=== PATIENT | female | born 1940 | race Caucasian/White ===

== ENCOUNTER 2017-10-08 14:35 | Emergency (ER) | payer MEDICARE, OTHER ==
[~2017-10-08] VITALS: Ht 165.1 cm; Wt 68.5 kg
[~2017-10-08 14:35] MED LIST: ADV250/50 IH; ALB0.5 IH; ALB6.7R INH; ALBU8.5H12 IH; AMOX-559 PO; AMOX1TAB9 PO; ASPI81TA94 PO; ATOR10TA24 PO; ATOR40TA69 PO; AZIT500T47 PO; BENAZAPRIL; CHOL200074 PO; CHOL500025 PO; FAMO40TA8 PO; FERR-53 PO; FLUT1AER INH; IPRA15SP7 NS; LANS30CA70 PO; LOSA-32 PO; LOSA-57 PO; METH4TAB66 PO; MON10 PO; MULT-912 PO; PAR20 PO; PARO-46 PO; PRED-1 PO; PRED20TA6 PO; RANI-324 PO; UBID100C33 PO; UBID100C48 PO; VITA1CAP46 PO
--- NOTE | 2017-10-08 14:39 | ER Report ---
History and Physical Time Seen By MD: 14:39 HPI/ROS CHIEF COMPLAINT: Dyspnea HISTORY OF PRESENT ILLNESS: 77-year-old female with history of gastric fundoplication for hiatal hernia sinusitis finishing Augmentin and chronic cough following with pulmonology reports dyspnea one day after her last pulmonology appointment symptoms started on but then seemed worse today when she noted her sat was 76% on room air on her home monitor. She is not on oxygen. No chest pain no leg swelling. She does endorse low-grade fevers chills muscle aches and body aches but no definite exposure to flu. No abdominal pain or urinary symptoms. Denies other concerns or complaints today. REVIEW OF SYSTEMS: Constitutional: Malaise Eyes: No discharge. ENT: No sore throat. Cardiovascular: Otherwise normal Respiratory: No cough, no shortness of breath. Gastrointestinal: No abdominal pain, no vomiting. Genitourinary: No hematuria. Musculoskeletal: No back pain. Skin: No rashes. Neurological: No headache. Allergies: Coded Allergies: sulfamethoxazole (Verified Allergy, Severe, RASH, 10/08/17) DRY MOUTH trimethoprim (Verified Allergy, Severe, RASH, 10/08/17) DRY MOUTH latex (Verified Allergy, Intermediate, RASH, ITCHING, SWELLING, 10/08/17) Home Meds Active Scripts Ipratropium Jansen 0.06% Ns (IPRATROPIUM BROMIDE 0.06% NS) 15 Ml [place], 2 SPRAYS NS BID for 30 Days, #1 BOT Prov:ZEB FLORES JR, MD 09/20/17 Atorvastatin Calcium (ATORVASTATIN CALCIUM) 40 Mg Tablet, 1 TAB PO QDAY, #30 TAB Prov:JAELYN LINDSAY MD 09/18/17 Losartan/Hydrochlorothiazide (HYZAAR 50-12.5 TABLET) 1 Each Tablet, 1 TAB PO DAILY, #90 TAB 3 Refills Prov:JAELYN LINDSAY MD 09/18/17 Albuterol Sulfate (PROVENTIL HFA) 6.7 Gm Inh, 2 PUFF INH Q4-6H, #1 INH Prov:SULEIMAN EDMONDS NP 11/03/15 Albuterol Sul Hfa 90 Mcg 8 Gm (VENTOLIN HFA 90 MCG 8 GM) 8.5 Gm Hfa.aer.ad, 2 PUFF IH Q4-6H, #1 Prov:ASHLEY KAUR DO 11/05/14 Reported Medications Aspirin (ASPIRIN) 81 Mg Tab.chew, 1 TAB PO DAILY, TAB.CHEW 09/18/17 Cholecalciferol (Vitamin D3) (VITAMIN D3) 5,000 Unit Tablet, 1 TAB PO DAILY 09/18/17 Ubidecarenone (COQ-10) 100 Mg Capsule, 100 MG PO DAILY, CAPSULE 04/03/15 Multivit With Calcium,Iron,Min (MULTIPLE VITAMINS FOR WOMEN) 1 Each Tablet, 1 EACH PO DAILY 04/03/15 Montelukast Sodium (Singulair) 10 Mg Tab, 10 MG PO QDAY 05/31/10 Discontinued Reported Medications Fluticasone/Vilanterol 100/25 Mcg/Inh (BREO ELLIPTA 100/25 MCG) 1 Each Aer.pow.ba, 1 INH INH QDAY, INH 09/18/17 Discontinued Scripts Amoxicillin/Pot Clav 875-125 Mg Tab (AUGMENTIN 875-125 TABLET) 1 Each Tablet, 1 TAB PO Q12H for 14 Days, #28 TAB Prov:ZEB FLORES JR, MD 09/20/17 Hx Smoking: Yes (SMOKED 4 TO 5 YEARS 1/2 PPD) Smoking Status: Former Smoker Exposure to Second Hand Smoke?: No Hx Substance Use Disorder: No Hx Alcohol Use: No Constitutional Vital Sign - Last 24 Hours 10/08/17 10/08/17 10/08/17 10/08/17 14:41 14:43 14:50 14:51 Temp 98.1 Pulse 83 85 Resp 20 25 B/P (MAP) 134/77 (96) Pulse Ox 84 91 O2 Delivery Room Air O2 Flow Rate 2.0 10/08/17 10/08/17 10/08/17 10/08/17 15:00 15:05 15:10 15:10 Pulse 80 71 Resp 19 13 B/P (MAP) 119/61 (80) Pulse Ox 91 O2 Delivery Nasal Cannula O2 Flow Rate 2.0 10/08/17 10/08/17 10/08/17 10/08/17 15:17 16:25 16:25 16:31 Pulse 72 71 73 Resp 16 10 15 Pulse Ox 90 O2 Delivery Nasal Cannula O2 Flow Rate 2.0 Physical Exam General Appearance: The patient is alert, has no immediate need for airway protection and no signs of toxicity. Appears mildly short of breath Eyes: Pupils equal and round no pallor or injection. ENT, Mouth: Mucous membranes are moist. Respiratory: There are no retractions, lungs are clear to auscultation. Moderate to poor air movement bilaterally Cardiovascular: Regular rate and rhythm. No murmurs gallops or rubs Gastrointestinal: Abdomen is soft and non tender, no masses, bowel sounds normal. Neurological: Normal exam Skin: Warm and dry, no rashes. Musculoskeletal: Neck is supple non tender. Extremities are nontender, nonswollen and have full range of motion. No peripheral edema DIFFERENTIAL DIAGNOSIS: After history and physical exam differential diagnosis was considered for viral syndrome, pneumonia, and just heart failure, doubt acute coronary syndrome or VT. Medical Decision Making Data Points Result Diagram: 10/08/17 1502 10/08/17 1502 Laboratory Hematology Test 10/08/17 15:02 Red Blood Count 4.96 M/uL (4.17-5.56) Mean Corpuscular Volume 89.8 fL (80.0-96.0) Mean Corpuscular Hemoglobin 30.9 pg (26.0-33.0) Mean Corpuscular Hemoglobin Concent 34.4 g/dL (32.0-36.0) Red Cell Distribution Width 13.4 % (11.5-14.5) Mean Platelet Volume 8.9 fL (7.2-11.1) Neutrophils (%) (Auto) 59.4 % (39.4-72.5) Lymphocytes (%) (Auto) 26.1 % (17.6-49.6) Monocytes (%) (Auto) 13.6 % (4.1-12.4) Eosinophils (%) (Auto) 0.3 % (0.4-6.7) Basophils (%) (Auto) 0.6 % (0.3-1.4) Nucleated RBC Relative Count (auto) 0.1 /100WBC Neutrophils # (Auto) 2.9 K/uL (2.0-7.4) Lymphocytes # (Auto) 1.3 K/uL (1.3-3.6) Monocytes # (Auto) 0.7 K/uL (0.3-1.0) Eosinophils # (Auto) 0.0 K/uL (0.0-0.5) Basophils # (Auto) 0.0 K/uL (0.0-0.1) Nucleated RBC Absolute Count (auto) 0.00 K/uL D-Dimer Quantitative (PE/DVT) 0.43 ug/ml (0-0.50) Sodium Level 138 mmol/L (137-145) Potassium Level 3.1 mmol/L (3.5-5.0) Chloride Level 96 mmol/L (98-107) Carbon Dioxide Level 26 mmol/L (22-31) Blood Urea Nitrogen 20 mg/dl (7-18) Creatinine 0.90 mg/dl (0.52-1.04) Glomerular Filtration Rate Calc > 60.0 Random Glucose 121 mg/dl (75-110) Calcium Level 8.9 mg/dl (8.4-10.2) Total Bilirubin 0.8 mg/dl (0.2-1.3) Aspartate Amino Transf (AST/SGOT) 32 U/L (0-35) Alanine Aminotransferase (ALT/SGPT) 45 U/L (0-56) Alkaline Phosphatase 92 U/L (0-126) Troponin I < 0.012 ng/ml B-Type Natriuretic Peptide 95 pg/ml (0-100) Total Protein 7.1 gm/dl (6.3-8.2) Albumin 3.8 g/dl (3.5-5.0) Influenza Virus Type A (PCR) Negative (NEGATIVE) Influenza Virus Type B (PCR) Negative (NEGATIVE) Respiratory Syncytial Virus (PCR) Negative (NEGATIVE) Group A Streptococcus Screen Negative (NEGATIVE) Chemistry Test 10/08/17 15:02 White Blood Count 4.8 k/uL (4.5-11.0) Red Blood Count 4.96 M/uL (4.17-5.56) Hemoglobin 15.3 g/dL (12.0-16.0) Hematocrit 44.5 % (34.0-47.0) Mean Corpuscular Volume 89.8 fL (80.0-96.0) Mean Corpuscular Hemoglobin 30.9 pg (26.0-33.0) Mean Corpuscular Hemoglobin Concent 34.4 g/dL (32.0-36.0) Red Cell Distribution Width 13.4 % (11.5-14.5) Platelet Count 158 K/uL (150-450) Mean Platelet Volume 8.9 fL (7.2-11.1) Neutrophils (%) (Auto) 59.4 % (39.4-72.5) Lymphocytes (%) (Auto) 26.1 % (17.6-49.6) Monocytes (%) (Auto) 13.6 % (4.1-12.4) Eosinophils (%) (Auto) 0.3 % (0.4-6.7) Basophils (%) (Auto) 0.6 % (0.3-1.4) Nucleated RBC Relative Count (auto) 0.1 /100WBC Neutrophils # (Auto) 2.9 K/uL (2.0-7.4) Lymphocytes # (Auto) 1.3 K/uL (1.3-3.6) Monocytes # (Auto) 0.7 K/uL (0.3-1.0) Eosinophils # (Auto) 0.0 K/uL (0.0-0.5) Basophils # (Auto) 0.0 K/uL (0.0-0.1) Nucleated RBC Absolute Count (auto) 0.00 K/uL D-Dimer Quantitative (PE/DVT) 0.43 ug/ml (0-0.50) Glomerular Filtration Rate Calc > 60.0 Calcium Level 8.9 mg/dl (8.4-10.2) Total Bilirubin 0.8 mg/dl (0.2-1.3) Aspartate Amino Transf (AST/SGOT) 32 U/L (0-35) Alanine Aminotransferase (ALT/SGPT) 45 U/L (0-56) Alkaline Phosphatase 92 U/L (0-126) Troponin I < 0.012 ng/ml B-Type Natriuretic Peptide 95 pg/ml (0-100) Total Protein 7.1 gm/dl (6.3-8.2) Albumin 3.8 g/dl (3.5-5.0) Influenza Virus Type A (PCR) Negative (NEGATIVE) Influenza Virus Type B (PCR) Negative (NEGATIVE) Respiratory Syncytial Virus (PCR) Negative (NEGATIVE) Group A Streptococcus Screen Negative (NEGATIVE) Coagulation Test 10/08/17 15:02 D-Dimer Quantitative (PE/DVT) 0.43 ug/ml EKG/Imaging EKG Interpretation An EKG was performed at 1453 and read by wa normal sinus rhythm ventricular rate of 80 normal WI QRS and QTc intervals no ST or T-wave changes to suggest ischemia or infarction overall impression normal EKG. ED Course/Re-evaluation ED Course Plan of care discussed and agreed upon prior to hers placed 10/08/2017 4:32:13 pm a consult was placed to Dr. Tigist Alves who agrees with plan for discharge on oxygen as needed and impaired influenza treatment for influenza-like illness perhaps a strain not captured by our influenza A and B screening assay. Decision to Disposition Date: Oct 08, 2017 Decision to Disposition Time: 16:52 Depart Departure Latest Vital Signs Vital Signs Date Time Temp Pulse Resp B/P (MAP) Pulse Ox O2 Delivery O2 Flow Rate FiO2 10/08/17 16:31 73 15 10/08/17 16:25 90 Nasal Cannula 2.0 10/08/17 15:00 119/61 (80) 10/08/17 14:41 98.1 Impression: Primary Impression: Influenza-like illness Condition: Improved Disposition: HOME OR SELF-CARE Referrals: VANESSA JACKSON MD (PCP) New Scripts Oseltamivir Phosphate (TAMIFLU) 75 Mg Cap 75 MG PO BID for 5 Days, #10 CAP 0 Refills Prov: NGOZI SCHAEFER MD 10/08/17 Departure Forms: ER Transition Record, Home Oxygen, Nebulizer RX, Durable Medical Equipment-Oxygen: Oxygen Concentrator Reason for Use/Diagnosis: viral URI, hypoxia Start Date of the Order: Oct 08, 2017 Dosage or Concentration (if applicable) - LPM: 3 Route of Administration (if applicable): Nasal Cannula Frequency of Use: Continuous Duration Home O2 Required: 7 Duration Units: Days Room Air Oxygen Saturation: 84 ER Prescribing Physician's Name: Other NPI Numbers for Local ER MDs: Other Medications Reconciliation, Patient Portal Information Patient Instructions: Influenza (ED) NGOZI SCHAEFER MD Oct 08, 2017 14:39
[2017-10-08] MEDS ORDERED: METHYLPREDNIS SUC IV ONE (15:00)
[2017-10-08] MEDS ORDERED: ALBUTEROL 2.5 MG/0.5ML ER ONLY NEB ONE (15:00)
[2017-10-08] MEDS ORDERED: NS 0.9% IV ONE (15:00)
[2017-10-08] MEDS ORDERED: IPRATROPIUM 0.5MG/2.5ML NEB NEB ONE (15:00)
[2017-10-08 15:33] LABS: PLATELET COUNT, AUTOMATED 158 K/uL (150-450)
--- NOTE | 2017-10-08 15:38 | RADIOLOGY IMAGING REPORT ---
FACILITY: [facility] PATIENT NAME: Makayla Cuellar : 1940 MR: [id number] V: [id number] EXAM DATE: ORDERING PHYSICIAN: NGOZI SCHAEFER TECHNOLOGIST: Location: [facility] Patient: Makayla Cuellar : 1940 Visit/Account:[id number] Date of Sevice: 10/08/2017 EXAMINATION: Portable chest radiograph single view at 1519 hours HISTORY: Wheezing, dyspnea, evaluate for edema. COMPARISON: 11/03/2015. FINDINGS: A single portable AP view of the chest is obtained. Lines/tubes: None. Lungs/pleura: No focal consolidation or pleural effusion. Heart: Negative. Mediastinum: Atherosclerotic calcifications of the aorta. The large hiatal hernia is no longer visua lized. Bony structures/body wall: Negative. IMPRESSION: No radiographic evidence of acute cardiopulmonary disease. Report Dictated By: Kellee Alarcon MD at 10/08/2017 3:33 PM Report E-Signed By: Kellee Alarcon MD at 10/08/2017 3:34 PM WSN:[id number]
[2017-10-08] MEDS ORDERED: ALBUTEROL/IPRATROPIUM 3 ML NEB ONE (16:28)
[2017-10-08] MEDS ORDERED: OSE75 PO (16:52)
--- NOTE | 2017-10-08 17:09 | RADIOLOGY IMAGING REPORT ---
[place] [facility] [place] NAME: Makayla Cuellar : 1940 MR: [id number] V: [id number] EXAM DATE: ORDERING PHYSICIAN: NGOZI SCHAEFER TECHNOLOGIST: Location: [facility] Patient: Makayla Cuellar : 1940 Visit/Account:[id number] Date of Sevice: 10/08/2017 Examination: 2 view chest radiograph at 1644 hours. Comparison: Same day and earlier. History: wheezing, dyspnea; for edema Findings: No consolidation, nodule, or evidence of acute peribronchial inflammation. No pneumothorax, edema, or effusion. Cardiac and hilar contour size is within normal limits and unchanged. Osseous st ructures are intact. IMPRESSION: No evidence of acute cardiopulmonary disease. Report Dictated By: Armand Shaw MD at 10/08/2017 5:01 PM Report E-Signed By: Armand Shaw MD at 10/08/2017 5:03 PM WSN:[id number]
[2017-10-08 17:30] VITALS: BP 134/67
--- NOTE | 2017-10-09 09:33 | EKG ---
FACILITY: [facility] [place] PATIENT NAME: DESHAWN DOLAN : [id number] MR: [id number] V: [id number] EXAM DATE: ORDERING PHYSICIAN: NGOZI SCHAEFER TECHNOLOGIST: BRITTANY Degroot Reason : SOB Blood Pressure : / mmHG Vent. Rate : 080 BPM Atrial Rate : 080 BPM P-R Int : 128 ms QRS Dur : 108 ms QT Int : 388 ms P-R-T Axes : 052 070 061 degrees QTc Int : 447 ms Normal sinus rhythm Normal ECG When compared with ECG of 03-NOV-2014 07:43, No significant change was found Confirmed by JEFF CHAPIN ([id number]) on 10/09/2017 11:53:40 AM Referred By: OLIVE Confirmed By:JEFF CHAPIN
[2017-10-09] MEDS ORDERED: DOXY-228 PO (13:37)
[2017-10-09] MEDS ORDERED: METH4TAB66 PO (13:37)
[2017-10-09] MEDS ORDERED: DOXY150T15 PO (15:02)
== END 2017-10-08 17:49 | disposition home or self-care (01) ==
LOC: ER 14:43
DX: J11.1 Influenza due to unidentified influenza virus with other respiratory manifestations (principal)
CPT/HCPCS: 71045; 71046; 83880; 84484; 85025; 85379; 87081; 87502; 87798; 87880; 93005; 94640; 96365; 99284; J2930; J7050; J7611; J7620; J7644; 82040; 82247; 82310; 82374; 82435; 82565; 82947; 84075; 84132; 84155; 84295; 84450; 84460; 84520

== ENCOUNTER → 2017-10-19 | Outpatient (CLI) | payer MEDICARE, OTHER ==
[~2017-10-19] MED LIST changes: +DOXY-228 PO; +DOXY150T15 PO; +OSE75 PO
== END ==
LOC: LAB 13:58
PROVIDERS: ATTEND Emergency Medicine
DX: M81.0 Age-related osteoporosis without current pathological fracture (principal); E87.6 Hypokalemia; E78.6 Lipoprotein deficiency
CPT/HCPCS: 36415; 82310; 82374; 82435; 82565; 82947; 84132; 84295; 84520

== ENCOUNTER → 2017-10-30 | Outpatient (CLI) | payer MEDICARE, OTHER ==
[~2017-10-30] MED LIST changes: +LIDO700A19 TP
--- NOTE | 2017-10-30 16:31 | RADIOLOGY IMAGING REPORT ---
FACILITY: [facility] PATIENT NAME: Makayla Cuellar : 1940 MR: [id number] V: [id number] EXAM DATE: ORDERING PHYSICIAN: CAM BANSAL TECHNOLOGIST: Location: [facility] [place] Patient: Makayla Cuellar : 1940 Visit/Account:[id number] Date of Sevice: 10/30/2017 CHEST W/O CONTRAST History: Pulmonary emphysema, cough, broken rib TECHNIQUE: Contiguous axial images were performed through the chest to the level of the adrenal gla nds. No IV contrast was administered. Coronal and sagittal reformatting was also performed. Dose Lowe ring Technique One of the following dose optimization techniques was utilized in the performance of this exam: Autom ated exposure control; adjustment of the mA and/or kV according to the patient's size; or use of an i terative reconstruction technique. Specific details can be referenced in the facility's radiology C T exam operational policy. COMPARISON STUDIES: CTA chest March 28, 2014. Lungs / Pleura: The posterior medial right lower lobe there is an ovoid nodular region measuring 10 x 3.4 mm best seen on image 51 series 3 which has remained stable since 2013 and is of doubtful sign ificance Mediastinum/nodes: There are small stable mediastinal lymph nodes Heart and vessels: At least moderate coronary artery calcifications. Also noted is mitral annular c alcification Musculoskeletal / Body wall: negative. Upper abdomen: There is been a prior gastric hernia repair. There is cholelithiasis although no de monstration of biliary ductal dilatation. There is diverticulosis of the colon IMPRESSION: At least moderate coronary artery vascular calcifications Postsurgical changes from a prior gastric hernia repair Cholelithiasis although no demonstration of biliary ductal dilatation Colonic diverticulosis Report Dictated By: Rachel Chase MD at 10/30/2017 4:13 PM Report E-Signed By: Rachel Chase MD at 10/30/2017 4:28 PM WSN:[email or web address]
== END ==
LOC: CT 04:01
PROVIDERS: ATTEND Internal Medicine Pulmonary Disease
DX: I25.10 Atherosclerotic heart disease of native coronary artery without angina pectoris (principal); K80.20 Calculus of gallbladder without cholecystitis without obstruction; Z98.890 Other specified postprocedural states; K57.92 Diverticulitis of intestine, part unspecified, without perforation or abscess without bleeding
CPT/HCPCS: 71250

== ENCOUNTER → 2018-02-16 | Outpatient (CLI) | payer MEDICARE, OTHER ==
[~2018-02-16] MED LIST changes: +DOXY-179 PO; +FLUT16SP19; +PARO10TA80 PO; +PNEU0.5D3 IM; -RANI-324 PO; +RANI-366 PO
--- NOTE | 2018-02-16 15:08 | RADIOLOGY IMAGING REPORT ---
FACILITY: [facility] PATIENT NAME: DESHAWN DOLAN : [id number] MR: [id number] V: [id number] EXAM DATE: ORDERING PHYSICIAN: JAELYN LINDSAY TECHNOLOGIST: Madhuri Giles PROCEDURE:BILATERAL DIGITAL SCREENING MAMMOGRAM WITH CAD ASSISTED INTERPRETATION & 3D TOMOSYNTHESIS COMPARISON:Prior mammograms 11/07/16, 01/08/14, 03/13/12, 03/01/12. INDICATIONS:SCREENING FINDINGS: Moderately heterogeneous fibroglandular tissue is seen throughout the breasts. The parenchymal pattern has remained stable allowing for difference in mammographic technique & patient positioning. There is no evidence of malignant appearing mass, malignant appearing calcifications or other secondary sign of malignancy in either breast. DIAGNOSTIC CATEGORY 1--NEGATIVE. RECOMMENDATIONS: ROUTINE MAMMOGRAM AND CLINICAL EVALUATION. IMPRESSION: BIRADS 1: Negative. No significant abnormality is seen. Dictated by: Rachel Chase M.D. on 02/16/2018 at 11:25 Transcribed by: THELMA on 02/16/2018 at 11:32 Approved by: Rachel Chase M.D. on 02/16/2018 at 15:07 [facility]
== END ==
LOC: MAMO 02:24
PROVIDERS: ATTEND Emergency Medicine
DX: Z12.31 Encounter for screening mammogram for malignant neoplasm of breast (principal)
CPT/HCPCS: 77063; 77067

== ENCOUNTER → 2018-04-10 | Outpatient (CLI) | payer MEDICARE, OTHER ==
--- NOTE | 2018-04-10 15:52 | RADIOLOGY IMAGING REPORT ---
FACILITY: [facility] PATIENT NAME: Makayla Cuellar : 1940 MR: [id number] V: [id number] EXAM DATE: ORDERING PHYSICIAN: ZEB FLORES TECHNOLOGIST: [place] [facility] [place] Patient: Makayla Cuellar : 1940 Visit/Account:[id number] Date of Sevice: 04/10/2018 EXAMINATION: CT sinus without IV contrast HISTORY: Chronic sinusitis. COMPARISON: CT sinus from 08/18/2017. TECHNIQUE: Contiguous axial images were obtained through the paranasal sinuses without intravenous c ontrast administration. Coronal and sagittal reformatted images were obtained from the axial source d jacki. One of the following dose optimization techniques was utilized in the performance of this exam: Autom ated exposure control; adjustment of the mA and/or kV according to the patient's size; or use of an i terative reconstruction technique. Specific details can be referenced in the facility's radiology C T exam operational policy. FINDINGS: Maxillary sinuses: Resection of the left maxillary medial sinus wall and antrostomy on the right, wit h bilateral uncinectomies. Moderate concentric mucosal thickening in the right maxillary sinus and mi ld mucosal thickening in the left superior maxillary sinus, similar to prior exam. Frontal sinuses: Moderate mucosal thickening in the bilateral frontal sinuses increased from previou s exam. Ethmoid air cells: Partial bilateral ethmoidectomies. Mucoperiosteal thickening in the bilateral ethm oid region is slightly worse. Sphenoid sinuses: The left sphenoid sinus is larger than the right which is a normal variant. The int ersinus septum inserts on the medial wall of the right carotid canal. Mild mucosal thickening of both sphenoid sinuses. The right anterior clinoid process is aerated by the sphenoid sinus. Ostiomeatal units: Postoperative changes as above. Nasal septum/nasal cavity: Previous nasal septoplasty and partial bilateral middle turbinectomies. Th ere is 1.2 cm polypoid soft tissue in the right nasal cavity posteriorly. Orbits: Negative. Visualized intracranial contents/soft tissues: Atherosclerotic calcifications of the carotid siphons. Visualized intracranial contents are otherwise normal. TMJs: Joint space narrowing, bony spurring and sclerosis, mild on the left and severe on the right. IMPRESSION: 1. Bilateral maxillary antrostomies, partial bilateral ethmoidectomies, previous septoplasty, and par tial bilateral middle turbinectomies, similar to prior exam. 2. Extensive chronic inflammation throughout the paranasal sinuses is slightly worse, particularly in the bilateral frontal sinuses. 3. Possible 1.2 cm right nasal polyp posteriorly. 4. 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 Report Dictated By: Kellee Alarcon MD at 04/10/2018 3:42 PM Report E-Signed By: Kellee Alarcon MD at 04/10/2018 3:47 PM WSN:[email or web address]
== END ==
LOC: CT 07:07
PROVIDERS: ATTEND Otolaryngology
DX: J32.8 Other chronic sinusitis (principal)
CPT/HCPCS: 70486

== ENCOUNTER → 2018-05-15 | Outpatient (CLI) | payer MEDICARE, OTHER ==
[~2018-05-15] MED LIST changes: +POTA-23 PO
--- NOTE | 2018-05-15 12:09 | RADIOLOGY IMAGING REPORT ---
FACILITY: [facility] - [place] PATIENT NAME: Makayla Cuellar : 1940 MR: [id number] V: [id number] EXAM DATE: ORDERING PHYSICIAN: ANJEL WHITNEY TECHNOLOGIST: Location: [facility] [place] Patient: Makayla Cuellar : 1940 Visit/Account:[id number] Date of Sevice: 05/15/2018 Exam type: CHEST PA AND LAT History: Malaise, weakness, dizziness Comparison: October 08, 2017. And CTa of the chest October 26, 2013 Findings: Ill-defined increased density projecting over the right heart border on the PA view is likely related to patient's known large hiatal hernia which is better depicted on a CTA of the chest from October 26, 2013. Small amount linear scarring in the left lower lobe. No evidence of pleural effusions or over t pulmonary edema. Cardiac silhouette is mildly enlarged but unchanged. IMPRESSION: 1. Small amount linear scarring in the left lower lobe Ill-defined area of increased density projecting over the right heart border is likely related to pat ient's known large hiatal hernia which was better depicted on a prior CTA of the chest as described a catrachito Report Dictated By: Rachel Chase MD at 05/15/2018 12:02 PM Report E-Signed By: Rachel Chase MD at 05/15/2018 12:06 PM WSN:[email or web address]
--- NOTE | 2018-05-15 12:49 | EKG ---
FACILITY: [facility] - [place] PATIENT NAME: DESHAWN DOLAN : [id number] MR: [id number] V: [id number] EXAM DATE: ORDERING PHYSICIAN: CHELO TECHNOLOGIST: BRAIN STAPLES Test Reason : DIZZINESS Blood Pressure : / mmHG Vent. Rate : 062 BPM Atrial Rate : 062 BPM P-R Int : 148 ms QRS Dur : 098 ms QT Int : 430 ms P-R-T Axes : 049 056 031 degrees QTc Int : 436 ms Sinus rhythm with occasional premature ventricular complexes Otherwise normal ECG No previous ECGs available Confirmed by Axel Corbett ([id number]) on 05/15/2018 2:05:15 PM Referred By: Confirmed By:Axel Hector
== END ==
LOC: LAB 11:09
PROVIDERS: ATTEND Nurse Practitioner Primary Care
DX: I49.3 Ventricular premature depolarization (principal); K44.9 Diaphragmatic hernia without obstruction or gangrene; R53.81 Other malaise
CPT/HCPCS: 36415; 71046; 81001; 82040; 82247; 82310; 82374; 82435; 82565; 82947; 83036; 84075; 84132; 84155; 84295; 84450; 84460; 84484; 84520

== ENCOUNTER → 2018-05-31 | Outpatient (CLI) | payer MEDICARE, OTHER ==
[~2018-05-31] MED LIST changes: +DOXY-229 PO
[2018-05-31 15:39] LABS: PLATELET COUNT, AUTOMATED 206 K/uL (150-450)
== END ==
LOC: LAB 15:03
PROVIDERS: ATTEND Emergency Medicine
DX: E55.9 Vitamin D deficiency, unspecified (principal); I10 Essential (primary) hypertension
CPT/HCPCS: 36415; 82306; 82310; 82374; 82435; 82565; 82947; 84132; 84295; 84520; 85025

== ENCOUNTER 2018-06-04 00:22 | Inpatient (IN) | payer MEDICARE, OTHER ==
[2018-06-04] VITALS (16 sets, daily range): BP systolic 99–149; BP diastolic 64–90
[~2018-06-04] VITALS: Ht 165.1 cm; Wt 69.4 kg
[2018-06-04] MEDS ORDERED: FAMOTIDINE 20 MG TAB PO ONE (06:30)
[2018-06-04] MEDS ORDERED: NORMOSOL R SOLN(*) 1000 ML BAG 1,000 ML IV PRN (06:30)
[2018-06-04] MEDS ORDERED: LIDOCAINE/SOD BICARB 8.4% SYR ID ONE (06:30)
[2018-06-04] MEDS ORDERED: MIDAZOLAM 2 MG/2 ML VIAL IVP PRN (06:30)
[2018-06-04] MEDS ORDERED: ceFAZolin(*) 2GM/D5W 50ML 50 ML IVPB ONE (09:05)
[2018-06-04] MEDS ORDERED: NS(*) 0.9% 250 ML BAG 250 ML ONE ×2 (09:28→17:41)
[2018-06-04] MEDS ORDERED: OXYMETAZOLINE SPRAY 15 ML BTL ONE (09:28)
[2018-06-04] MEDS ORDERED: LIDO/EPI 1% MDV 1:100,000 20ML INFIL ONE ×2 (09:28→10:13)
[2018-06-04] MEDS ORDERED: BACITRACIN OINT 15 GM TUBE TP ONE (09:28)
[2018-06-04] MEDS ORDERED: MUPIROCIN 2% OINT 22 GM TUBE TP ONE (09:29)
[2018-06-04] MEDS ORDERED: DEXAMETHASONE SOD PHOS 10MG/ML ONE (09:45)
[2018-06-04] MEDS ORDERED: GELATIN SPONGE 12-7MM ONE (10:27)
[2018-06-04] MEDS ORDERED: GELATIN SPONGE SZ 100 ONE (10:27)
[2018-06-04] MEDS ORDERED: LR(*) 1000 ML BAG 1,000 ML IV PRN (11:04)
--- NOTE | 2018-06-04 11:04 | Post Operative Note ---
Operative Note - ENT Operative Day Date: Jun 04, 2018 Physicians Surgeon: Alcides Anesthesia: LMA Diagnosis Pre-Op Diagnosis: chronic sinusitis Post-Op Diagnosis: 1. chronic sinusitis 2. CSF leak Procedure Procedure(s): 1. endoscopic sinus surgery 2. repair right CSF leak Specimen Removed:(Maybe N/A): none Complications: CSF leak Fluids Fluids: see anesthesia note Estimated Blood Loss: 100 ml ZEB FLORES JR, MD Jun 04, 2018 11:04
[2018-06-04] MEDS ORDERED: ONDANSETRON 4 MG ODT TABDP SL PRN (11:05)
[2018-06-04] MEDS ORDERED: APAP/HYDROCODONE 325/5 TAB PO PRN (11:05)
[2018-06-04] MEDS ORDERED: MORPHINE 2 MG/ML SYR IVP PRN (11:05)
[2018-06-04] MEDS: ALBUTEROL 8 GM INHALER INH SCH (11:05)
[2018-06-04] MEDS ORDERED: ALBUTEROL SULFATE INH SCH (11:05)
[2018-06-04] MEDS ORDERED: fentaNYL CITR 100 MCG/2 ML AMP ONE (11:17)
--- NOTE | 2018-06-04 13:34 | Hospitalist Consultation ---
History of Present Illness Requesting Physician Dr. Flores Reason for Consult Medical Management, Dural leak Chief Complaint s/p sinus surgery History of Present Illness She was admitted s/p sinus surgery. She did have dural leak sustained during surgery. She has c/o headache now. History Problems: (1) Hypertension Status: Chronic (2) Asthma Status: Chronic (3) Hyperlipidemia Status: Chronic (4) Vitamin D deficiency Status: Chronic Home Meds Active Scripts Paroxetine Hcl (PAROXETINE HCL) 10 Mg Tablet, 10 MG PO QDAY, #90 TAB 3 Refills Prov:JAELYN LINDSAY MD 01/18/18 Atorvastatin Calcium (ATORVASTATIN CALCIUM) 40 Mg Tablet, 1 TAB PO QDAY, #90 TAB 4 Refills Prov:JAELYN LINDSAY MD 01/18/18 Fluticasone Prop 50 Mcg Ns (FLONASE 50 MCG NS) 16 Gm [place].susp, 2 SPRAYS NA QDAY for 30 Days, #1 BOT 11 Refills Prov:ZEB FLORES JR, MD 01/08/18 Losartan/Hydrochlorothiazide (HYZAAR 50-12.5 TABLET) 1 Each Tablet, 1 TAB PO DAILY, #90 TAB 3 Refills Prov:JAELYN LINDSAY MD 09/18/17 Albuterol Sulfate (PROVENTIL HFA) 6.7 Gm Inh, 2 PUFF INH Q4-6H, #1 INH Prov:SULEIMAN EDMONDS NP 11/03/15 Albuterol Sul Hfa 90 Mcg 8 Gm (VENTOLIN HFA 90 MCG 8 GM) 8.5 Gm Hfa.aer.ad, 2 PUFF IH Q4-6H, #1 Prov:ASHLEY KAUR DO 11/05/14 Reported Medications Fluticasone/Vilanterol 100/25 Mcg/Inh (BREO ELLIPTA 100/25 MCG) 1 Each Aer.pow.ba, 1 INH INH QDAY, INH 05/31/18 Aspirin (ASPIRIN) 81 Mg Tab.chew, 1 TAB PO DAILY, TAB.CHEW 09/18/17 Cholecalciferol (Vitamin D3) (VITAMIN D3) 5,000 Unit Tablet, 1 TAB PO DAILY 09/18/17 Ubidecarenone (COQ-10) 100 Mg Capsule, 100 MG PO DAILY, CAPSULE 04/03/15 Multivit With Calcium,Iron,Min (MULTIPLE VITAMINS FOR WOMEN) 1 Each Tablet, 1 EACH PO DAILY 04/03/15 Discontinued Scripts Doxycycline Monohydrate (DOXYCYCLINE MONOHYDRATE) 100 Mg Tablet, 100 MG PO BID for 7 Days, #14 TAB Prov:ZEB FLORES JR, MD 05/29/18 Potassium Chloride (KLOR-CON 10) 10 Meq Tablet.er, 1 TAB PO QDAY, #15 TAB 0 Refills Prov:BART WHITNEYSEJennifer Rodriguez DNP, TEAM PRIMARY CARE PHYSICIAN-BC 05/15/18 Allergies: Coded Allergies: sulfamethoxazole (Verified Allergy, Severe, RASH, 10/08/17) DRY MOUTH trimethoprim (Verified Allergy, Severe, RASH, 10/08/17) DRY MOUTH latex (Verified Allergy, Intermediate, RASH, ITCHING, SWELLING, 10/08/17) Patient History: FH: dementia MOTHER, , Age:82 FH: hypertension FATHER, , Age:92 FH: pneumonia FATHER, , Age:92 FH: stroke MOTHER, , Age:82 Hx Smoking: Yes (SMOKED 4 TO 5 YEARS 08/29 PPD, QUIT IN 1966) Smoking Status: Former Smoker Exposure to Second Hand Smoke?: No Caffeine Intake: Coffee Caffeine/Cups Per Day: 3 CUPS PER DAY Hx Alcohol Use: No Hx Substance Use Disorder: No Social Drug Use: Never History of IV Drug Use: No Review of Systems All Systems Reviewed/Normal: Yes, Except as Noted Neurological: Other (headache) Exam Vital Signs Vital Signs Date Time Temp Pulse Resp B/P (MAP) Pulse Ox O2 Delivery O2 Flow Rate FiO2 06/04/18 12:44 98.3 79 20 135/89 (104) 95 Oxy Mask 4.0 General Appearance: Alert, Awake, No Acute Distress, Afebrile Neuro: No Gross deficits Cardiovascular: Regular Rate and Rhythm Respiratory: No Respiratory Distress, Clear to Auscultation GI: Abd Soft and Non-Tender Extremities: Warm, Perfused; No Edema Psych: Alert & Oriented X3, Appropriate Mood & Affect Assessment and Plan Problems: (1) S/P sinus surgery Status: Acute Assessment & Plan: Followed by Dr. Flores. (2) Dural tear Status: Acute Assessment & Plan: She will lay flat, and have strict bed rest. She will need to use the bed perry. She will get Tylenol and Morphine for pain. (3) Hypertension Status: Chronic Assessment & Plan: She is on chronic treatment with Losartan and Hydrochlorothiazide. These have been restarted with hold parameters. (4) Asthma Status: Chronic Assessment & Plan: She is on chronic treatment with Breo inhaler. (5) Hyperlipidemia Status: Chronic Assessment & Plan: She is on chronic treatment with Atorvastatin. (6) Vitamin D deficiency Status: Chronic Assessment & Plan: She does take Vitamin D daily. Continue. Venous Thromboembolism Antithrombotics Is Pt On Any Antithrombotics?: No Problem Qualifiers (1) Hypertension: Hypertension type: essential hypertension Qualified Codes: I10 - Essential (primary) hypertension PADMINI MEJIA TEAM PRIMARY CARE PHYSICIAN Jun 04, 2018 13:34
[2018-06-04] MEDS: DOCUSATE SODIUM 100 MG CAP PO SCH ×2 (14:00→20:25)
[2018-06-04] MEDS ORDERED: LOSA-32 PO (14:07)
[2018-06-04] MEDS: ACETAMINOPHEN 325 MG TAB PO PRN (14:09)
[2018-06-04] MEDS: KETOROLAC 15 MG/ML VIAL IVP SCH ×2 (14:22→22:34)
[2018-06-04] MEDS ORDERED: OXYMETAZOLINE SPRAY 15 ML BTL ENA ONE (16:05)
[2018-06-04] MEDS: cefTRIAXone(*) 1 GM VIAL 1 GM in NS(*) 0.9% 100 ML ADDVANT BAG 100 ML IVPB SCH (17:46)
[2018-06-04] MEDS ORDERED: OXYMETAZOLINE SPRAY 15 ML BTL ENA PRN (18:45)
[2018-06-05] MEDS: FLUTICASONE/VILANTEROL 100 MCG/25 MCG INH INH SCH (06:00)
[2018-06-05] MEDS: KETOROLAC 15 MG/ML VIAL IVP SCH (06:28)
[2018-06-05 08:15] VITALS: BP 119/66
[2018-06-05] MEDS: LOSARTAN POTASSIUM 50 MG TAB PO SCH (08:21)
[2018-06-05] MEDS: HYDROCHLOROTHIAZIDE 25 MG TAB PO SCH (08:21)
[2018-06-05] MEDS ORDERED: LOSARTAN POTASSIUM 50 MG TAB PO SCH (09:00)
[2018-06-05] MEDS ORDERED: HYDROCHLOROTHIAZIDE 25 MG TAB PO SCH (09:00)
[2018-06-05] MEDS ORDERED: ATORVASTATIN 40 MG TAB PO SCH ×2 (09:00→21:00)
[2018-06-05] MEDS ORDERED: [UNRECOGNIZED DRUG - OTHER] INH SCH (09:00)
[2018-06-05] MEDS ORDERED: PARoxetine HCL 20 MG TAB PO SCH ×2 (09:00→21:00)
[2018-06-05] MEDS ORDERED: CHOLECALCIFEROL 1000 UNIT TAB PO SCH (09:00)
[2018-06-05] MEDS: DOCUSATE SODIUM 100 MG CAP PO SCH ×3 (09:00→21:00)
[2018-06-05] MEDS ORDERED: ASPIRIN 81 MG CHEW PO SCH (09:00)
--- NOTE | 2018-06-05 11:00 | Hospitalist Progress Note ---
Subjective Progress Notes Subjective She has some mild nasal bleeding this morning. She reports her headache has improved since yesterday. Patient Complains of: Cardiovascular: No: Chest Pain Respiratory: No: Shortness of Breath Physical Exam Vital Signs Date Time Temp Pulse Resp B/P (MAP) Pulse Ox O2 Delivery O2 Flow Rate FiO2 06/05/18 08:35 84 06/05/18 08:20 Oxy Mask 1.0 06/05/18 08:15 98.0 76 20 119/66 (83) Intake and Output 06/05/18 07:00 Intake Total 2340 ml Balance 2340 ml Intake Oral 240 ml IV Total 1100 ml Other 1000 ml # Voids 1 General Appearance: Alert, Awake, No Acute Distress, Afebrile Neuro: No Gross deficits Cardiovascular: Regular Rate and Rhythm Respiratory: No Respiratory Distress, Clear to Auscultation GI: Soft and Non-Tender Extremities: No Edema Psych: Alert & Oriented X3, Appropriate Mood & Affect Result Diagram: 06/05/18 0524 Assessment and Plan Problems: (1) S/P sinus surgery Status: Acute Assessment & Plan: Followed by Dr. Mcgrath. (2) Dural tear Status: Acute Assessment & Plan: She will lay flat, and have strict bed rest. She may start to elevate bed tomorrow. She will need to use the bed perry. She will get Tylenol and Morphine for pain. (3) Hypertension Status: Chronic Assessment & Plan: She is on chronic treatment with Losartan and Hydroch lorothiazide. These have been restarted with hold parameters. (4) Asthma Status: Chronic Assessment & Plan: She is on chronic treatment with Breo inhaler. (5) Hyperlipidemia Status: Chronic Assessment & Plan: She is on chronic treatment with Atorvastatin. (6) Vitamin D deficiency Status: Chronic Assessment & Plan: She does take Vitamin D daily. Continue. Exam Sepsis Risk: No Definite Risk Problem Qualifiers (1) Hypertension: Hypertension type: essential hypertension Qualified Codes: I10 - Essential (primary) hypertension PADMINI MEJIA PRIMING MACHINE OPERATOR Jun 05, 2018 11:00
[2018-06-05] MEDS: ALBUTEROL 8 GM INHALER INH SCH (11:05)
[2018-06-05 11:25] VITALS: Ht 165.1 cm; Wt 69.4 kg
[2018-06-05 12:09] VITALS: BP 106/67
[2018-06-05] MEDS: ACETAMINOPHEN 325 MG TAB PO PRN (13:00)
[2018-06-05 15:16] VITALS: BP 109/71
[2018-06-05] MEDS: cefTRIAXone(*) 1 GM VIAL 1 GM in NS(*) 0.9% 100 ML ADDVANT BAG 100 ML IVPB SCH (17:41)
[2018-06-05] MEDS ORDERED: CALCIUM CARBONATE 500 MG CHEW PO PRN (19:30)
[2018-06-05 19:33] VITALS: BP 128/75
[2018-06-05] MEDS ORDERED: FAMOTIDINE 20 MG TAB PO SCH (21:00)
[2018-06-05 23:06] VITALS: BP 140/79
[2018-06-06] MEDS: ACETAMINOPHEN 325 MG TAB PO PRN (01:46)
[2018-06-06 02:47] VITALS: BP 133/68
[2018-06-06] MEDS: FLUTICASONE/VILANTEROL 100 MCG/25 MCG INH INH SCH (05:43)
[2018-06-06 08:05] VITALS: BP 107/66
[2018-06-06] MEDS: DOCUSATE SODIUM 100 MG CAP PO SCH (09:00)
[2018-06-06] MEDS: HYDROCHLOROTHIAZIDE 25 MG TAB PO SCH (09:00)
[2018-06-06] MEDS: LOSARTAN POTASSIUM 50 MG TAB PO SCH (09:00)
[2018-06-06] MEDS ORDERED: CEFU500T10 PO (10:36)
[2018-06-06] MEDS ORDERED: DOCU-202 PO (10:36)
--- NOTE | 2018-06-06 10:51 | Hospitalist Progress Note ---
Subjective Progress Notes Subjective She has no complaints this morning. She had no acute events overnight. Patient Complains of: Cardiovascular: No: Chest Pain Respiratory: No: Shortness of Breath Physical Exam Vital Signs Date Time Temp Pulse Resp B/P (MAP) Pulse Ox O2 Delivery O2 Flow Rate FiO2 06/06/18 08:05 97.8 64 20 107/66 (80) 99 Oxy Mask 1.0 Intake and Output 06/06/18 07:00 Intake Total 240 ml Balance 240 ml Intake Oral 240 ml # Voids 5 General Appearance: Alert, Awake, No Acute Distress, Afebrile Neuro: No Gross deficits Cardiovascular: Regular Rate and Rhythm Respiratory: No Respiratory Distress, Clear to Auscultation GI: Soft and Non-Tender Psych: Alert & Oriented X3, Appropriate Mood & Affect Result Diagram: 06/05/18 0524 Assessment and Plan Problems: (1) S/P sinus surgery Status: Acute Assessment & Plan: Followed by Dr. Mcgrath. (2) Dural tear Status: Acute Assessment & Plan: She was admitted and she did lay flat for 24 hours, then progressed to standing. She has been ambulating and denies any headache this morning. (3) Hypertension Status: Chronic Assessment & Plan: She is on chronic treatment with Losartan and Hydrochlorothiazide. She was instructed to hold her blood pressure medications for two days, then resume. If she feels lightheaded, she will stop them and contact her PCP. (4) Asthma Status: Chronic Assessment & Plan: She is on chronic treatment with Breo inhaler. (5) Hyperlipidemia Status: Chronic Assessment & Plan: She is on chronic treatment with Atorvastatin. (6) Vitamin D deficiency Status: Chronic Assessment & Plan: She does take Vitamin D daily. Continue. Exam Sepsis Risk: No Definite Risk Problem Qualifiers (1) Hypertension: Hypertension type: essential hypertension Qualified Codes: I10 - Essential (primary) hypertension PADMINI MEJIAP Jun 06, 2018 10:51
[2018-06-06] MEDS ORDERED: LOR5/325 PO (11:46)
--- NOTE | 2018-06-06 20:04 | OPERATIVE REPORT 1 ---
EVENT DATE: June 04, 2018 SURGEON: Marino Mcgrath MD ANESTHESIOLOGIST: Jason Schmitz MD ANESTHESIA: LMA. PROCEDURES PERFORMED 1. Bilateral revision total ethmoidectomies. 2. Left nasal polypectomy. 3. Left frontal balloon sinuplasty. 4. Closure of cerebrospinal fluid leak. PREOPERATIVE DIAGNOSIS Chronic bilateral frontal and maxillary sinusitis. POSTOPERATIVE DIAGNOSES 1. Chronic bilateral frontal and total ethmoid sinusitis. 2. Left nasal polyposis. 3. Right cerebrospinal fluid leak. INDICATIONS Please refer to the preoperative note. DESCRIPTION OF PROCEDURE The patient was positively identified in the preoperative area. She was there alone. The risks again explained included, but were not limited to bleeding, infection, injury to the orbit, vision changes, injury to the skull base, cerebrospinal fluid leak, and those associated with anesthesia. She acknowledged understanding of those risks. Her CT scan was then reviewed prior to taking the patient back to the operating room. This was notable for opacification of bilateral frontal and maxillary sinuses. She was then brought back to the operative suite, placed supine on the operating table, and anesthesia was administered. Once asleep, the patient was positioned and prepped and draped in the usual sterile fashion. Both nasal cavities were initially packed with cottonoids containing Afrin solution. I began on the left side. The cottonoids were removed, and nasal endoscopy was performed. The patient was noted to have a widely patent maxillary sinus ostium. She was noted to have nasal polyposis superiorly obstructing the frontal duct. This was debrided. A balloon sinuplasty was performed on the frontal sinus. Patient was noted to have significant scarring and residual ethmoidal cells. A total ethmoidectomy was performed. I then proceeded with the contralateral side. The cottonoids were removed, and nasal endoscopy was performed. She was noted to have a widely patent ostium into the maxillary sinus. I attempted a right frontal balloon sinuplasty, but was unable to cannulate the duct. The patient again had significant scarring and residual ethmoid sinus cells. A total ethmoidectomy was performed. In this process, a small dural tear was made approximately 3 mm in size. A mucosal flap was fashioned and rotated over the tear, and DuraSeal, FloSeal, and a NasoPore dressing were placed. The patient was turned turned to Anesthesia for emergence. Estimated blood loss 100 mL. COMPLICATIONS Cerebrospinal fluid leak which was repaired intraoperatively. MTDD
[2018-06-20] MEDS ORDERED: LOSA-32 PO (14:17)
[2018-06-20] MEDS ORDERED: ATOR40TA69 PO (14:35)
--- NOTE | 2018-06-27 10:34 | Hospitalist Depart ---
Discharge Summary Reason for Hosp/Final Diag: (1) Dural tear Status: Resolved (2) Chronic sinusitis Status: Resolved Hospital Course & Plan: Patient underwent ESS on day of admission complicated by CSF leak, repaired intraoperatively. Admitted for IV antibiotics and m onitoring. Patient had an uncomplicated hospital course and discharged home on POD #2. Departure Weight (Pounds): 153 Condition: Improved Discharge: Home Discharge Code Status: Full Code Time Spent: < 30 min Discharge Instructions Home Meds Active Scripts Atorvastatin Calcium (ATORVASTATIN CALCIUM) 40 Mg Tablet, 0.5 TAB PO QDAY, #90 TAB 4 Refills Prov:JAELYN LINDSAY MD 06/20/18 Losartan/Hydrochlorothiazide (HYZAAR 50-12.5 TABLET) 1 Each Tablet, 1 TAB PO DAILY, #90 TAB 3 Refills Prov:JAELYN LINDSAY MD 06/20/18 Hydrocodone Bit/Acetaminophen (HYDROCODON-ACETAMINOPHEN 5-325) 1 Each Tablet, 1 EACH PO Q6H PRN for MILD TO MODERATE PAIN, #10 TAB Prov:PADMINI MEJIA EVENT PLANNER 06/06/18 Cefuroxime Axetil (CEFUROXIME) 500 Mg Tablet, 500 MG PO BID for 10 Days, #20 TAB Prov:ZEB FLORES JR, MD 06/06/18 Docusate Sodium (DOCUSATE SODIUM) 100 Mg Capsule, 100 MG PO TID for 10 Days, #30 CAPSULE Prov:ZEB FLORES JR, MD 06/06/18 Paroxetine Hcl (PAROXETINE HCL) 10 Mg Tablet, 10 MG PO QDAY, #90 TAB 3 Refills Prov:JAELYN LINDSAY MD 01/18/18 Albuterol Sulfate (PROVENTIL HFA) 6.7 Gm Inh, 2 PUFF INH Q4-6H, #1 INH Prov:SULEIMAN EDMONDS CABIN CLEANER 11/03/15 Albuterol Sul Hfa 90 Mcg 8 Gm (VENTOLIN HFA 90 MCG 8 GM) 8.5 Gm Hfa.aer.ad, 2 PUFF IH Q4-6H, #1 Prov:ASHLEY KAUR DO 11/05/14 Reported Medications Fluticasone/Vilanterol 100/25 Mcg/Inh (BREO ELLIPTA 100/25 MCG) 1 Each Aer.pow.ba, 1 INH INH QDAY, INH 05/31/18 Aspirin (ASPIRIN) 81 Mg Tab.chew, 1 TAB PO DAILY, TAB.CHEW 09/18/17 Cholecalciferol (Vitamin D3) (VITAMIN D3) 5,000 Unit Tablet, 1 TAB PO DAILY 09/18/17 Ubidecarenone (COQ-10) 100 Mg Capsule, 2 TAB PO DAILY, CAPSULE 04/03/15 Multivit With Calcium,Iron,Min (MULTIPLE VITAMINS FOR WOMEN) 1 Each Tablet, 1 EACH PO DAILY 04/03/15 Diet: Regular Activity: No Heavy Lifting, No Exertion Special Instructions: No strenuous activity or lifting over 15 lbs. No nose blowing. Follow up with Dr Flores, call for appointment Venous Thromboembolism Antithrombotics Is Pt On Any Antithrombotics?: No Problem Qualifiers (1) Chronic sinusitis: Sinusitis location: maxillary Qualified Codes: J32.0 - Chronic maxillary sinusitis MARK RODRIGUEZ,ZEB Becerra MD Jun 27, 2018 10:34
== END 2018-06-06 12:35 | disposition home or self-care (01) | DRG 909 ==
LOC: OR 00:22 → MED 12:40
PROVIDERS: ADMIT Otolaryngology; ATTEND Otolaryngology
PROC: 09TU8ZZ Resection of Right Ethmoid Sinus, Via Natural or Artificial Opening Endoscopic (ICD-10-PCS; 2018-06-04)
PROC: 00Q24ZZ Repair Dura Mater, Percutaneous Endoscopic Approach (ICD-10-PCS; 2018-06-04)
PROC: 09QT8ZZ Repair Left Frontal Sinus, Via Natural or Artificial Opening Endoscopic (ICD-10-PCS; 2018-06-04)
PROC: 09BK8ZZ Excision of Nasal Mucosa and Soft Tissue, Via Natural or Artificial Opening Endoscopic (ICD-10-PCS; 2018-06-04)
PROC: 09TV8ZZ Resection of Left Ethmoid Sinus, Via Natural or Artificial Opening Endoscopic (ICD-10-PCS; principal; 2018-06-04 09:50)
DX: G97.41 Accidental puncture or laceration of dura during a procedure (principal); J32.1 Chronic frontal sinusitis; J32.0 Chronic maxillary sinusitis; J33.8 Other polyp of sinus; I10 Essential (primary) hypertension; F41.8 Other specified anxiety disorders; I48.2 Chronic atrial fibrillation; J45.909 Unspecified asthma, uncomplicated; E78.5 Hyperlipidemia, unspecified; E55.9 Vitamin D deficiency, unspecified; I25.10 Atherosclerotic heart disease of native coronary artery without angina pectoris; K21.9 Gastro-esophageal reflux disease without esophagitis; M79.7 Fibromyalgia; Y92.234 Operating room of hospital as the place of occurrence of the external cause; Z88.2 Allergy status to sulfonamides; Z88.8 Allergy status to other drugs, medicaments and biological substances; Z91.040 Latex allergy status; Z87.891 Personal history of nicotine dependence
CPT/HCPCS: 36415; 85027; C1726; C1769; C1887; J0690; J0696; J1100; J1885; J2250; J3010; J3535; J7050

== ENCOUNTER → 2018-12-21 | Outpatient (CLI) | payer MEDICARE, OTHER ==
[2018-06-05 11:25] VITALS: BMI 25.5
[~2018-12-21] MED LIST changes: +BARIUM SULFATE 176 GM BTL PO ONE; +BARIUM SULFATE 340 GM POWD ONE; +CEFU500T10 PO; +DOCU-202 PO; +DOXY-252 PO; +LOR5/325 PO
--- NOTE | 2018-12-21 15:44 | RADIOLOGY IMAGING REPORT ---
[place] [facility] [place] Makayla Cuellar : 1940 MR: [id number] V: [id number] EXAM DATE: ORDERING PHYSICIAN: ZEB FLORES TECHNOLOGIST: [facility]: [facility] [place] Patient: Makayla Cuellar : 1940 Visit/Account:[id number] Date of Sevice: 12/21/2018 Exam type: ESOPHAGRAM History: hiatal hernia s/p fundoplication, chronic cough Comparison: March 27, 2015. Findings: Double contrast esophagram was performed with thick and thin barium and air contrast. There are post surgical changes from a Serafin fundoplication. There is at least moderate narrowing of the distal es ophagus. A 12 mm barium tablet did not pass into the stomach. Extensive presbyesophagus was noted n o significant gastroesophageal reflux was observed the dose area product was 708.15 micro-Damon per me ter squared IMPRESSION: 1. There post surgical changes from a Serafin fundoplication. There is at least moderate narrowing o f the distal esophagus with failure of a 12 mm barium tablet to pass into the stomach Gastroesophageal reflux was not observed Significant presbyesophagus Report Dictated By: Rachel Chase MD at 12/21/2018 3:36 PM Report E-Signed By: Rachel Chase MD at 12/21/2018 3:40 PM WSN:[email or web address]
== END ==
LOC: RAD 01:20
PROVIDERS: ATTEND Otolaryngology
DX: K22.8 Other specified diseases of esophagus (principal); Z98.890 Other specified postprocedural states
CPT/HCPCS: 74220